=== PATIENT | female | born 1955 | race Caucasian/White ===

== ENCOUNTER → 2023-09-09 14:07 | Outpatient (REF) | payer OTHER, SELFPAY | LOC: HWWDC 14:07 | PROVIDERS: ATTENDING PHYSICIAN Nurse Practitioner Adult Health | DX: Z12.31 Encounter for screening mammogram for malignant neoplasm of breast (principal); Z78.0 Asymptomatic menopausal state | CPT/HCPCS: 77063; 77067; 77080 ==

== ENCOUNTER → 2024-10-21 09:31 | Outpatient (REF) | payer OTHER, SELFPAY | LOC: HWWDC 09:31 | PROVIDERS: ATTENDING PHYSICIAN Physician Assistant; FAMILY PHYSICIAN Nurse Practitioner Adult Health | DX: R94.31 Abnormal electrocardiogram [ECG] [EKG] (principal); I10 Essential (primary) hypertension; E78.5 Hyperlipidemia, unspecified; R07.89 Other chest pain; R22.42 Localized swelling, mass and lump, left lower limb; Z12.31 Encounter for screening mammogram for malignant neoplasm of breast | CPT/HCPCS: 93017; 76882; 77063; 77067; 93350 ==